=== PATIENT | female | born 1950 | race Caucasian/White ===

== ENCOUNTER → 2019-08-04 | Outpatient (CLI) | payer OTHER | LOC: RAD 11:24 | DX: Z12.31 Encounter for screening mammogram for malignant neoplasm of breast (principal) ==

== ENCOUNTER → 2019-08-04 | Outpatient (CLI) | payer OTHER | LOC: CAT 09:50 | DX: Z13.6 Encounter for screening for cardiovascular disorders (principal); E78.00 Pure hypercholesterolemia, unspecified; I25.10 Atherosclerotic heart disease of native coronary artery without angina pectoris ==

== ENCOUNTER → 2019-08-11 | Outpatient (CLI) | payer OTHER | LOC: ULTRA 01:54 | DX: N63.20 Unspecified lump in the left breast, unspecified quadrant (principal) ==

== ENCOUNTER → 2020-11-28 | Outpatient (CLI) | payer OTHER | LOC: NUC 10:36 → BC 10:36 | PROVIDERS: ATTEND Family Medicine | DX: Z12.31 Encounter for screening mammogram for malignant neoplasm of breast (principal); N19 Unspecified kidney failure; R93.1 Abnormal findings on diagnostic imaging of heart and coronary circulation; M85.88 Other specified disorders of bone density and structure, other site ==